=== PATIENT | male | born 1950 | race Caucasian/White ===

== ENCOUNTER 2020-06-12 06:45 | Emergency (ER) | payer MEDICARE ==
[~2020-06-12] VITALS: Ht 180.3 cm; Wt 81.6 kg
[2020-06-12 06:50] VITALS: BP 138/80
--- NOTE | 2020-06-12 06:50 | NUR ---
PT ALTHEA ALS. TAKEN TO BED 12
--- NOTE | 2020-06-12 07:25 | NUR ---
PT HAD A WITNESSED TONIC/CLONIC SEIZURE AT [facility] WHILE SITTING IN A CHAIR, STAFF STATES SEIZURE LASTED APPROX 1 MINUTE. PT HAS NO HISTORY OF SEIZURES. PT DID NOT FALL TO THE GROUND, STAYED SEATED THE WHOLE TIME. PT DOES NOT APPEAR POSTICTAL, PT'S BASELINE MENTATION IS DEMENTIA, CONSTANTLY MUMBLING/SINGING, UNABLE TO ANSWER QUESTIONS OR FOLLOW COMMANDS. PT WAS PLACED IN A GOWN AND PLACED ON BEDSIDE MONITOR. SEIZURE PADS PLACED ON SIDERAILS. BED IN LOWEST POSITION, LOCKED AND SIDERAILS UP X 2.
--- NOTE | 2020-06-12 07:25 | NUR ---
Pt report given to SHILPI GARCIA. Transfer of care at this time.
--- NOTE | 2020-06-12 07:29 | NUR ---
Lab at bedside for blood draw
--- NOTE | 2020-06-12 07:29 | NUR ---
Received report from JOSE Acevedo. Transfer of care at this time
[2020-06-12 07:44] LABS: BASOPHILS % (AUTO) 0.2 % (0.0-2.0); EOSINOPHILS # (AUTO) 0.1 K/uL (0-0.4); EOSINOPHILS % (AUTO) 0.7 % (0.0-4.0); HEMATOCRIT 41.8 % (36-52); HEMOGLOBIN 14.1 g/dL (12.0-18.0); LYMPHOCYTES % (AUTO) 11.4 % (20.5-51.1); MEAN CORPUSCULAR HEMOGLOBIN 33 pg (27-31); MEAN CORPUSCULAR HGB CONC 34 g/dL (33-37); MONOCYTES # (AUTO) 0.4 K/uL (0.8-1.0); NEUTROPHILS # (AUTO) 7.5 K/uL (1.8-7.7); NEUTROPHILS % (AUTO) 83.7 % (42.2-75.2); PLATELET COUNT (AUTO) 176 K/uL (140-450); RED BLOOD CELL COUNT(AUTO) 4.26 MIL/uL (4.20-6.10); RED CELL DISTRIBUTION WIDTH 13.4 % (11.6-13.7)
--- NOTE | 2020-06-12 07:44 | NUR ---
150cc dark yellow urine received via straight cath. Pt tolerated well.
--- NOTE | 2020-06-12 07:48 | NUR ---
Covid swab collected and given to laborer [place].
[2020-06-12 08:04] LABS: ALBUMIN 4.1 g/dL (3.4-5.0); ANION GAP 13.2 (8-16); CARBON DIOXIDE 29.1 mmol/L (21-32); CREATININE 1.1 mg/dL (0.6-1.3); POTASSIUM 4.3 mmol/L (3.5-5.1); TOTAL BILIRUBIN 0.5 mg/dL (0.0-1.0)
--- NOTE | 2020-06-12 08:45 | NUR ---
Patient taken to CT scan via gurney by [facility].
--- NOTE | 2020-06-12 08:52 | NUR ---
Patient returned from CT via [facility]
--- NOTE | 2020-06-12 09:23 | NUR ---
Report given to Rand at [facility]
[2020-06-12 09:59] LABS: BILIRUBIN,URINE NEGATIVE (NEGATIVE); BLOOD, URINE 3+ (NEGATIVE); COLOR,URINE YELLOW (YELLOW); LEUKOCYTE ESTERASE ,URINE NEGATIVE (NEGATIVE); NITRITE, URINE NEGATIVE (NEGATIVE); UGLUCOSE NEGATIVE (NEGATIVE)
[2020-06-12 10:00] LABS: APPEARANCE,URINE CLOUDY (CLEAR)
--- NOTE | 2020-06-12 10:05 | NUR ---
Patient resting with eyes closed, visible rise and fall of the chest. Remains on bedside monitor. VSS
[2020-06-12 11:00] LABS: RBC,URINE 50-80 /HPF (0-5)
--- NOTE | 2020-06-12 11:12 | NUR ---
REPORT RECEIVED FROM JOSE DOBBINS. TRANSFER OF CARE AT THIS TIME.
--- NOTE | 2020-06-12 11:30 | NUR ---
PT IS AWAKE AND IN STABLE CONDITION. EQUAL RISE AND FALL OF CHEST WALL. SEIZURE PADS IN PLACE, SIDE RAILS X2, AND BED LOCKED IN LOWEST POSITION.
--- NOTE | 2020-06-12 12:45 | NUR ---
Patient discharged with v/s stable. Written and verbal after care instructions given and explained. Patient verbalized understanding. Ambulance Transport with to skilled nursing. All questions addressed prior to discharge. Advised to follow up with PMD.
[2020-06-12 12:46] VITALS: BP 100/63
== END 2020-06-12 12:45 ==
LOC: MED 06:45
DX: F03.90 Unspecified dementia, unspecified severity, without behavioral disturbance, psychotic disturbance, mood disturbance, and anxiety (principal); Z20.828 Contact with and (suspected) exposure to other viral communicable diseases; Z00.01 Encounter for general adult medical examination with abnormal findings
CPT/HCPCS: 36415; 70450; 71045; 80053; 81001; 83880; 84484; 85025; 87040; 87086; 93005; 99285